=== PATIENT | male | born 1955 | race Caucasian/White ===

== ENCOUNTER 2016-03-29 15:53 | Emergency (ER) | payer OTHER ==
[~2016-03-29] VITALS: Ht 170.2 cm; Wt 81.6 kg
[~2016-03-29 15:53] MED LIST: AZIT250T5 PO; D-ME118S33 PO; HYDR-3812 PO; IBUP-15 PO; MINO100C2 PO; SULF1TAB35 PO
[2016-03-29] MEDS ORDERED: KETOROLAC 60 MG/2 ML VIAL IM STA (16:53)
--- NOTE | 2016-03-29 17:00 | ED Trauma-Multisystem ---
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 States he heard it falling an tried to get out of the way and it hit him. No LOC or other injury. Occurred at about 6 am this morning. See at clinic for this and sent here for evaluation. CO neck stiffness when turning. Occurred: This Morning Severity: Moderate Pain/Injury Location: Neck Method of Injury: Direct Blow Loss of Consciousness: No Loss of Consciousness Associated Symptoms (Fall): No Abdominal Pain, No Chest Pain, No Confusion, HeadacheNo Lightheadedness, Muscle SpasmsNo Nausea/Vomiting, Neck PainNo Shortness of Air Allergies and Home Medications Allergies Coded Allergies: No Known Drug Allergies (Unverified , 02/07/16) Home Medications Azithromycin 250 Mg Tablet #6 250 MG PO UD TAKE 2 TABLETS ON DAY ONE THEN TAKE 1 TABLET DAILY FOR FOUR MORE DAYS Prescribed by: BIJU QUEVEDO on 03/18/16 1206 Cyclobenzaprine HCl 10 Mg Tablet #15 10 MG PO Q8H PRN PRN SPASMS Prescribed by: LEV VALENTE on 03/29/16 1841 D-Methorphan Hb/P-Epd HCl/Bpm 118 Ml Syrup #120 5 ML PO Q4H PRN PRN CONGESTION Prescribed by: BIJU QUEVEDO on 03/18/16 1206 Constitutional: see HPINo chills, No fever Eyes: No Symptoms Reported Ears: No Symptoms Reported Nose: No Symptoms Reported Mouth: No Symptoms Reported Throat: No Symptoms to Report Respiratory: no symptoms reported Cardiovascular: No Symptoms Reported Gastrointestinal: no symptoms reported Musculoskeletal: see HPI muscle pain neck pain Psychiatric/Neurological: See HPI HeadacheDenies Weakness Past Fkydnjh-Zlfjhq-Ivpywl Hx Patient Social History Alcohol Use: Denies Use Recreational Drug Use: No Smoking Status: Never a Smoker Recent Foreign Travel: No Contact w/Someone Who Travel: No Recent Hopitalizations: No Immunizations Up To Date Tetanus Booster (TDap): Less than 5yrs Seasonal Allergies Seasonal Allergies: No Surgeries HX Surgeries: Yes (HERNIA) Surgeries: Appendectomy Respiratory Hx Respiratory Disorders: No Cardiovascular Hx Cardiac Disorders: No Neurological Hx Neurological Disorders: Yes Neurological Disorders: Seizure Disorder Reproductive System Hx Reproductive Disorders: No Sexually Transmitted Disease: No Genitourinary Hx Genitourinary Disorders: No Gastrointestinal Hx Gastrointestinal Disorders: No Musculoskeletal Hx Musculoskeletal Disorders: No Endocrine Hx Endocrine Disorders: No HEENT HX ENT Disorders: No Cancer Hx Cancer: No Psychosocial Hx Psychiatric Problems: No Integumentary HX Skin/Integumentary Disorder: No Blood Transfusions Hx Blood Disorders: No Reviewed Nursing Assessment Reviewed/Agree w Nursing PMH: Yes Family Medical History Significant Family History: No Pertinent Family Hx Physical Exam General Appearance: No Apparent Distress WD/WN Head: No Evidence of InjuryNo Lopes's Sign Ears, Nose, Throat: Hearing Grossly Normal No Evidence of ENT Injury No Dental Injury Neck: Limited Range of Motion (pain) Tender Lateral (bilateral)No Tender Midline Cardiovascular: Regular Rate, Rhythm No Murmur Respiratory: Lungs Clear Normal Breath Sounds Gastrointestinal: Non Tender Soft Back: Normal Inspection No CVA Tenderness No Vertebral Tenderness Extremity: Normal Range of Motion Non Tender Neurologic/Psychiatric: Alert Oriented x3 Skin: Normal Color Warm/Dry Benji Coma Score Best Eye Response ([place]): (4) Open Spontaneously Best Verbal Response (Benji): (5) Oriented Best Motor Response (Benji): (6) Obeys Commands Progress/Results/Core Measures Results/Orders My Orders Orders-LEV VALENTE MD Ct Head/Cervical Spine Wo (03/29/16 16:53) Ketorolac Injection (Toradol Injection) (03/29/16 16:53) Progress Note : Progress Note Seen and evaluated. CT HEad and neck ordered. Toradol 60 mg IM. Improved pain. CT shows only degeneration. DC home with return precautions. Verbalized understanding of instructions and agreement with plan. Diagnostic Imaging Diagonstic Imaging: CT Plain Films/CT/US/NM/MRI: c-spine, head Comments VIA [place], [place] NAME: LOC GALVEZ JR [facility] REC#: [id number] PT STATUS: REG ER : 1955 PHYSICIAN: LEV VALENTE MD ADMIT DATE: 03/29/16/ER Draft Date of Exam:03/29/16 CT HEAD/CERVICAL SPINE WO PROCEDURE: CT head and CT cervical spine without contrast. TECHNIQUE: Multiple contiguous axial images were obtained through the brain and cervical spine without the use of intravenous contrast. Sagittal and coronal reformations through the cervical spine were then performed. INDICATION: Status post fall, hitting back of neck with tree limb. Pain in between the shoulder blades. CORRELATION STUDY: None FINDINGS: CT HEAD: Ventricles and sulci appearing unremarkable. No midline shift or mass effect. No abnormal areas of decreased attenuation to suggest edema. No intracranial hemorrhage. Bony calvarium intact. Paranasal sinuses and mastoid air cells overall clear. CT CERVICAL SPINE: Reformatted images demonstrate relatively normal alignment. Cervical vertebral body heights overall maintained. The exception is a C6 level with slight loss of overall volume appearing to be chronic. There is moderate to marked disc space narrowing at C5-C6 and C6-C7 levels with prominent endplate osteophyte which does result in osseous narrowing of the neuroforamina, particularly at C6-C7 level. Slight asymmetric areas of hypertrophic facet arthropathy. No evidence for acute fracture. Odontoid intact. The lateral masses of C1 and C2 aligned. Occipital condyles unremarkable. Visualized lung apices appearing unremarkable. IMPRESSION: CT HEAD: 1. Negative for acute traumatic intracranial abnormality. CT CERVICAL SPINE: 1. Negative for acute fracture or traumatic subluxation. 2. Asymmetric cervical spondylosis with disc space narrowing and endplate osteophyte formation at C5-C6 and C6-C7 levels with mild to moderate osseous encroachment upon the foramina with resultant foraminal narrowing, particularly at C6-C7 level. Dictated on workstation # [id number] Dict: 03/29/16 1801 Trans: 03/29/16 1819 [facility] [id number] Interpreted by: PRESTON SAGE DO Electronically signed by: Reviewed: Reviewed by Me Departure Impression Impression: Primary Impression: Neck injury Qualified Code: S19.9XXA - Unspecified injury of neck, initial encounter Additional Impression: Neck muscle strain Qualified Code: S16.1XXA - Strain of muscle, fascia and tendon at neck level, initial encounter Disposition: 01 HOME, SELF-CARE Condition: Improved Departure-Patient Inst. Decision time for Depature: 18:38 Referrals: NO,LOCAL PHYSICIAN (PCP/Family) Primary Care Physician Patient Instructions: Cervical Muscle Strain (DC) Add. Discharge Instructions: All discharge instructions reviewed with patient and/or family. Voiced understanding. Take ibuprofen 800 mg every 8 hours for pain. You may take other meds as prescribed. Follow up with your doctor in a few days for recheck and further evaluation if not improved. Return for worse pain, fever, weakness or other concerns as needed. Scripts Cyclobenzaprine HCl 10 Mg [id number] Mg PO Q8H PRN SPASMS #15 TAB Prov:LEV VALENTE MD 03/29/16 LEV VALENTE MD Mar 29, 2016 17:00
--- NOTE | 2016-03-29 18:19 | Diagnostic Imaging Report ---
PROCEDURE: CT head and CT cervical spine without contrast. TECHNIQUE: Multiple contiguous axial images were obtained through the brain and cervical spine without the use of intravenous contrast. Sagittal and coronal reformations through the cervical spine were then performed. INDICATION: Status post fall, hitting back of neck with tree limb. Pain in between the shoulder blades. CORRELATION STUDY: None FINDINGS: CT HEAD: Ventricles and sulci appearing unremarkable. No midline shift or mass effect. No abnormal areas of decreased attenuation to suggest edema. No intracranial hemorrhage. Bony calvarium intact. Paranasal sinuses and mastoid air cells overall clear. CT CERVICAL SPINE: Reformatted images demonstrate relatively normal alignment. Cervical vertebral body heights overall maintained. The exception is a C6 level with slight loss of overall volume appearing to be chronic. There is moderate to marked disc space narrowing at C5-C6 and C6-C7 levels with prominent endplate osteophyte which does result in osseous narrowing of the neuroforamina, particularly at C6-C7 level. Slight asymmetric areas of hypertrophic facet arthropathy. No evidence for acute fracture. Odontoid intact. The lateral masses of C1 and C2 aligned. Occipital condyles unremarkable. Visualized lung apices appearing unremarkable. IMPRESSION: CT HEAD: 1. Negative for acute traumatic intracranial abnormality. CT CERVICAL SPINE: 1. Negative for acute fracture or traumatic subluxation. 2. Asymmetric cervical spondylosis with disc space narrowing and endplate osteophyte formation at C5-C6 and C6-C7 levels with mild to moderate osseous encroachment upon the foramina with resultant foraminal narrowing, particularly at C6-C7 level. Dictated by: Dictated on workstation # [id number]
[2016-03-29] MEDS ORDERED: CYCL10TA9 PO (18:41)
[2016-03-29 18:45] VITALS: BP 150/96
== END 2016-03-29 18:57 | disposition home or self-care (01) ==
LOC: EDUNIT# 15:53 → ER 15:55
DX: S16.1XXA Strain of muscle, fascia and tendon at neck level, initial encounter (principal); M47.812 Spondylosis without myelopathy or radiculopathy, cervical region; W22.8XXA Striking against or struck by other objects, initial encounter; Y92.414 Local residential or business street as the place of occurrence of the external cause; Y99.0 Civilian activity done for income or pay
CPT/HCPCS: 70450; 72125; 96372

== ENCOUNTER 2016-09-25 18:36 | Emergency (ER) | payer SELFPAY ==
[~2016-09-25] VITALS: Ht 170.2 cm; Wt 77.6 kg
[~2016-09-25 18:36] MED LIST changes: +CYCL10TA9 PO
[2016-09-25] MEDS ORDERED: AZIT250T5 PO ×2 (18:46→19:14)
[2016-09-25] MEDS ORDERED: BENZ-13 PO ×2 (18:46→19:14)
--- NOTE | 2016-09-25 18:46 | ED Cough/URI ---
General Chief Complaint: Respiratory Problems Stated Complaint: POSSIBLE PNEUMONIA Source: patient Exam Limitations: no limitations History of Present Illness Time seen by provider: 18:43 Initial Comments To ER with reports of possible pneumonia. He is concerned about this because he had a productive cough for 2 weeks. He reports chills but no fevers. He does not smoke. He denies any rhinorrhea or sore throat. Denies shortness of breath. Timing/Duration: constant Severity/Quality: productive cough Associated Symptoms: cough Allergies and Home Medications Allergies Coded Allergies: No Known Drug Allergies (Unverified , 09/25/16) Constitutional: see HPI EENTM: see HPI Respiratory: see HPI, cough Cardiovascular: no symptoms reported Genitourinary: no symptoms reported Musculoskeletal: no symptoms reported Skin: no symptoms reported Psychiatric/Neurological: No Symptoms Reported Past Csobkpb-Rvhple-Hhspzn Hx Patient Social History Recent Foreign Travel: No Contact w/Someone Who Travel: No Recent Hopitalizations: No Immunizations Up To Date Tetanus Booster (TDap): Less than 5yrs Seasonal Allergies Seasonal Allergies: No Surgeries HX Surgeries: Yes (HERNIA) Surgeries: Appendectomy Respiratory Hx Respiratory Disorders: No Cardiovascular Hx Cardiac Disorders: No Neurological Hx Neurological Disorders: Yes Neurological Disorders: Seizure Disorder Reproductive System Hx Reproductive Disorders: No Sexually Transmitted Disease: No Genitourinary Hx Genitourinary Disorders: No Gastrointestinal Hx Gastrointestinal Disorders: No Musculoskeletal Hx Musculoskeletal Disorders: No Endocrine Hx Endocrine Disorders: No HEENT HX ENT Disorders: No Cancer Hx Cancer: No Psychosocial Hx Psychiatric Problems: No Integumentary HX Skin/Integumentary Disorder: No Blood Transfusions Hx Blood Disorders: No Family Medical History Significant Family History: No Pertinent Family Hx Physical Exam Vital Signs Vital Sign - Last 12Hours 09/25/16 18:42 Temp 97.8 Pulse 91 Resp 18 B/P (MAP) 168/104 Capillary Refill : General Appearance: WD/WN, no apparent distress Eyes: Bilateral Eye EOMI, Bilateral Eye Normal Inspection, Bilateral Eye PERRL HEENT: PERRL/EOMI, normal ENT inspection Neck: non-tender, full range of motion Respiratory: lungs clear, normal breath sounds, no respiratory distress, no accessory muscle use Cardiovascular: regular rate, rhythm, no murmur Gastrointestinal: normal bowel sounds, non tender, soft Extremities: normal range of motion, non-tender Neurologic/Psychiatric: alert, normal mood/affect, oriented x 3 Skin: normal color, warm/dry Progress/Results/Core Measures Results/Orders My Orders Orders - BIJU QUEVEDO APRN Chest Pa/Lat (2 View) (09/25/16 18:42) Vital Signs/I&O Vital Sign - Last 12Hours 09/25/16 18:42 Temp 97.8 Pulse 91 Resp 18 B/P (MAP) 168/104 Departure Impression Impression: Primary Impression: Bronchitis Disposition: 01 HOME, SELF-CARE Condition: Stable Departure-Patient Inst. Decision time for Depature: 18:44 Referrals: NO,LOCAL PHYSICIAN (PCP/Family) Primary Care Physician Patient Instructions: Acute Bronchitis, Adult (DC) Add. Discharge Instructions: Medication as directed Follow-up with your doctor next week All discharge instructions reviewed with patient and/or family. Voiced understanding. Scripts Benzonatate (Tessalon Perle) 100 Mg Capsule 100 MG PO TID Y for COUGH, #14 CAP Prov: BIJU QUEVEDO APRN 09/25/16 Azithromycin (Azithromycin) 250 Mg Tablet 250 MG PO UD, #6 TAB TAKE 2 TABLETS ON DAY ONE THEN TAKE 1 TABLET DAILY FOR FOUR MORE DAYS Prov: BIJU QUEVEDO APRN 09/25/16 BIJU QUEVEDO APRN Sep 25, 2016 18:46
--- NOTE | 2016-09-25 19:10 | Diagnostic Imaging Report ---
INDICATION: Cough, question pneumonia EXAMINATION: Two-chest 09/25/2016 Comparison is made to 03/19/2016 FINDINGS: Two views of the chest There are no infiltrates or effusions. There is no pneumothorax. Heart and pulmonary vasculature appear unremarkable. IMPRESSION: 1. No acute process. Dictated by: Dictated on workstation # [id number]
[2016-09-25 19:26] VITALS: BP 152/91
== END 2016-09-25 19:26 | disposition home or self-care (01) ==
LOC: EDUNIT# 18:36 → ER 18:38
DX: J40 Bronchitis, not specified as acute or chronic (principal); G40.909 Epilepsy, unspecified, not intractable, without status epilepticus; Z90.49 Acquired absence of other specified parts of digestive tract
CPT/HCPCS: 71020; 99282

== ENCOUNTER 2017-04-07 22:25 | Emergency (ER) | payer SELFPAY ==
[~2017-04-07] VITALS: Ht 170.2 cm; Wt 77.6 kg
[~2017-04-07 22:25] MED LIST changes: +ACHD5005 PO; +AZIT250T12 PO; -AZIT250T5 PO; +BENZ-13 PO; -HYDR-3812 PO; -IBUP-15 PO; +IBUP-16 PO
[2017-04-07] MEDS ORDERED: KETOROLAC 60 MG/2 ML VIAL IM STA (22:38)
[2017-04-07] MEDS ORDERED: CYCLOBENZAPRINE 10 MG (FLEXERIL) TAB PO STA (22:38)
[2017-04-07] MEDS ORDERED: DEXAMETHASONE PF 10 MG/ML (DECADRON) VIAL IM STA (22:38)
--- NOTE | 2017-04-07 22:47 | ED Back Pain ---
General Chief Complaint: Back Problems Stated Complaint: LOW BACK PAIN History of Present Illness Time Seen by Provider: 20:30 Initial Comments 61 -year-old male reports 1 month history of low back and right leg pain. He denies any injury to his back. He has not been taking anything for the pain until today, he tried a hydrocodone with no relief in his symptoms. Denies any bowel or bladder changes. Location: Lumbar Spine Timing/Duration: Getting Worse Severity: Moderate Radiation: Upper Legs (right) Method of Injury: Unknown Modifying Factors: Improves With Rest Associated Symptoms: muscle spasms, numbness in legs/feet, tingling in legs/ feet, lower back pain, No loss of bladder control, No loss of bowel control Allergies and Home Medications Allergies Coded Allergies: No Known Drug Allergies (Unverified , 09/25/16) Home Medications Cyclobenzaprine HCl 10 Mg Tablet, 10 MG PO Q8H, #12 Ref 0 Prescribed by: JOSÉ DE on 04/07/170 Tramadol HCl 50 Mg Tablet, 50 MG PO Q8H, #20 Ref 0 Prescribed by: JOSÉ DE on 04/07/17 2250 Constitutional: no symptoms reported, see HPI Musculoskeletal: see HPI, back pain All Other Systems Reviewed Negative Unless Noted: Yes Past Rdmfgrx-Fnluew-Rvdvvw Hx Patient Social History Alcohol Use: Denies Use Recreational Drug Use: No Smoking Status: Never a Smoker 2nd Hand Smoke Exposure: No Recent Foreign Travel: No Contact w/Someone Who Travel: No Recent Hopitalizations: No Immunizations Up To Date Tetanus Booster (TDap): Less than 5yrs Seasonal Allergies Seasonal Allergies: No Surgeries History of Surgeries: Yes (HERNIA) Surgeries: Appendectomy Respiratory History of Respiratory Disorde: No Cardiovascular History of Cardiac Disorders: No Neurological History of Neurological Disord: Yes Neurological Disorders: Seizure Disorder Reproductive System Hx Reproductive Disorders: No Sexually Transmitted Disease: No Genitourinary History of Genitourinary Disor: No Gastrointestinal History of Gastrointestinal Di: No Musculoskeletal History of Musculoskeletal Dis: No Endocrine History of Endocrine Disorders: No HEENT History of HEENT Disorders: No Cancer History of Cancer: No Psychosocial History of Psychiatric Problem: No Integumentary History of Skin or Integumenta: No Blood Transfusions History of Blood Disorders: No Reviewed Nursing Assessment Reviewed/Agree w Nursing PMH: Yes Family Medical History Significant Family History: No Pertinent Family Hx Physical Exam Vital Signs Vital Sign - Last 12Hours 04/07/17 22:35 Temp 97.8 Pulse 88 Resp 18 B/P (MAP) 149/108 (122) Pulse Ox 97 O2 Delivery Room Air Capillary Refill : General Appearance: No Apparent Distress, WD/WN Neck: Full Range of Motion, Normal Inspection, Non Tender, Supple Cardiovascular: Regular Rate, Rhythm, No Murmur, Normal Peripheral Pulses Respiratory: Chest Non Tender, Lungs Clear, Normal Breath Sounds Gastrointestinal: Normal Bowel Sounds, Non Tender, Soft Back: Normal Inspection, Decreased Range of Motion (secondary to pain), Muscle Spasm (lumbar spine), Other (ambulates with an antalgic gait, able to toe and heal walk. Power V/V L4-S1, but pain in low back with right hip flexor testing. + SLR. ) Neurologic/Psychiatric: Alert, Oriented x3, No Motor/Sensory Deficits, Normal Mood/Affect Skin: Normal Color, Warm/Dry Progress/Results/Core Measures Results/Orders My Orders Orders - JOSÉ DE Cyclobenzaprine Tablet (Flexeril Tablet) (04/07/17 22:38) Ketorolac Injection (Toradol Injection) (04/07/17 22:38) Dexamethasone Pf Injection (Decadron Pf (04/07/17 22:38) Lumbar Spine - 2-3 Views (04/07/17 22:38) Dexamethasone Injection (Decadron Inject (04/07/17 22:48) Medications Given in ED Current Medications Medications Dose Ordered Sig/Dae Route Start Time Stop Time Status Last Admin Dose Admin Dexamethasone Sodium Phosphate 10 mg STK-MED ONCE .ROUTE 04/07/17 22:48 04/07/17 22:51 DC 04/07/17 22:52 10 MG Vital Signs/I&O Vital Sign - Last 12Hours 04/07/17 04/07/17 04/07/17 04/07/17 22:35 22:52 22:52 23:10 Temp 97.8 97.8 97.8 97.8 Pulse 88 70 Resp 18 18 B/P (MAP) 149/108 (122) Pulse Ox 97 98 O2 Delivery Room Air Progress Note : Time: 20:30 Progress Note Initial evaluation completed, recommended Decadron 10 mg IM, Toradol 60 mg IM, Flexeril 10 mg by mouth. X-rays of lumbosacral spine. Continue to monitor patient. 2300 x-ray show no acute changes, mild degenerative changes noted at L5-S1. Will be over read by radiology. Patient reports slight improvement. Discharge instructions and return precautions reviewed with patient, all questions answered. Diagnostic Imaging Diagonstic Imaging: Xray Plain Films/CT/US/NM/MRI: chest Comments No acute bony abnormalities noted, degenerative changes at L5-S1. Reviewed: Reviewed by Me Departure Impression Impression: Primary Impression: Lumbar radiculopathy Additional Impressions: Back pain Qualified Codes: M54.41 - Lumbago with sciatica, right side Back strain Qualified Codes: S39.012A - Strain of muscle, fascia and tendon of lower back , initial encounter Essential hypertension Disposition: HOME, SELF-CARE Condition: Improved Departure-Patient Inst. Decision time for Depature: 23:00 Referrals: NO,LOCAL PHYSICIAN (PCP/Family) Primary Care Physician Patient Instructions: High Blood Pressure (DC), Low Back Pain (DC), Lumbar Muscle Strain (DC), Radiculopathy (DC) Add. Discharge Instructions: Alternate heat and ice on low back for 20 minutes every 2 hours. Alternate ibuprofen 600 mg and Tylenol 150 mg every 4 hours for pain. Ambulates 10 minutes every hour while awake for back pain. Use cane for ambulation. Establish care with primary care provider. Have blood pressure checked. Return to emergency department for changes in bowel or bladder habits, new injuries or concerns. All discharge instructions reviewed with patient and/or family. Voiced understanding. Scripts Cyclobenzaprine HCl (Cyclobenzaprine HCl) 10 Mg Tablet 10 MG PO Q8H, #12 TAB 0 Refills Prov: JOSÉ DE 04/07/17 Tramadol HCl (Tramadol HCl) 50 Mg Tablet 50 MG PO Q8H, #20 TAB 0 Refills Prov: JOSÉ DE 04/07/17 Work/School Note: [employer] JOSÉ DE Apr 07, 2017 22:47
[2017-04-07] MEDS ORDERED: DEXAMETHASONE 10 MG/ML (DECADRON) 1 ML VIAL ONE (22:48)
[2017-04-07] MEDS ORDERED: TRAM50TA2 PO (22:50)
[2017-04-07] MEDS ORDERED: CYCL10TA9 PO (22:50)
[2017-04-07 23:10] VITALS: BP 154/104
--- OUTSIDE RECORDS SUMMARY | 2017-04-07 23:22 | XMS REPORT ---
Author Author VIVI PORRAS Organization 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 Name Role Phone VIVI PORRAS Unavailable PROBLEMS Unknown Problems ALLERGIES Substance Reaction Event Type Date Status Morphine Sulfate Unknown Drug Allergy Mar, Active SOCIAL HISTORY No smoking Hx information available PLAN OF CARE Activity Details Follow Up 2 Weeks- needs to est care Reason: VITAL SIGNS Weight 170.2 lbs 2016-03-29 Temperature 97.3 degrees Fahrenheit 2016-03-29 Heart Rate 76 bpm 2016-03-29 Respiratory Rate 20 2016-03-29 Blood pressure systolic 122 mmHg 2016-03-29 Blood pressure diastolic 84 mmHg 2016-03-29 MEDICATIONS No Known Medications RESULTS Name Result Date Reference Range Xray : Spine, Cervical (IN HOUSE) 2016-03-29 PROCEDURES Procedure Date Ordered Related Diagnosis Body Site X-RAY EXAM OF NECK SPINE Mar 29, 2016 Office Visit, New Pt., Level 3 Mar 29, 2016 IMMUNIZATIONS No Known Immunizations
--- OUTSIDE RECORDS SUMMARY | 2017-04-07 23:23 | XMS REPORT | Continuity of Care Document ---
Author Author [facility] Organization [facility] Address Unknown Phone Unavailable Allergies Active Description Code Type Severity Reaction Onset Reported/Identified Relationship to Patient Clinical Status Yes No Known Drug Allergies [id number] Drug Allergy Unknown N/A 09/25/2016 Medications There is no data. Problems Date Dx Coded Attending Type Code Diagnosis Diagnosed By 02/06/2016 LAURENCE SILVA MD (DDU) Ot 780.39 OTHER CONVULSIONS 02/06/2016 LAURENCE SILVA MD (DDU) Ot 780.4 DIZZINESS AND GIDDINESS 02/06/2016 LAURENCE ISLVA MD (DDU) Ot V68.01 DISABILITY EXAMINATION 02/06/2016 LAURENCE SILVA MD (DDU) Ot V72.5 RADIOLOGICAL EXAM NEC 02/06/2016 YOLANDA WIN MD Ot S80.261A INSECT BITE (NONVENOMOUS), RIGHT KNEE, I 02/06/2016 YOLANDA WIN MD Ot Z53.21 PROC/TRTMT NOT CRD OUT D/T PT LV BEF SEE 02/07/2016 FAISAL KUMAR Ot L03.116 CELLULITIS OF LEFT LOWER LIMB 02/07/2016 FAISAL KUMAR Ot T63.391A TOXIC EFFECT OF VENOM OF SPIDER, ACCIDEN 02/09/2016 YOLANDA WIN MD Ot S80.261A INSECT BITE (NONVENOMOUS), RIGHT KNEE, I 02/09/2016 YOLANDA WIN MD Ot Z53.21 PROC/TRTMT NOT CRD OUT D/T PT LV BEF SEE 02/09/2016 FAISAL KUMAR Ot L03.116 CELLULITIS OF LEFT LOWER LIMB 02/09/2016 FAISAL KUMAR Ot T63.391A TOXIC EFFECT OF VENOM OF SPIDER, ACCIDEN 03/18/2016 BIJU QUEVEDO MACHINERY REPAIR MAINTENANCE SUPERVISOR Ot J40 BRONCHITIS, NOT SPECIFIED ACUTE OR CH 03/18/2016 BIJU QUEVEDO APRN Ot R05 COUGH 03/19/2016 BIJU QUEVEDO APRN Ot J40 BRONCHITIS, NOT SPECIFIED ACUTE OR CH 03/19/2016 BIJU QUEVEDO APRN Ot R05 COUGH 03/29/2016 LEV VALENTE MD, Ot M47.812 SPONDYLOSIS W/O MYELOPATHY OR RADICULOPA 03/29/2016 LEV VALENTE MD Ot S16.1XXA STRAIN OF MUSCLE, FASCIA AND TENDON AT N 03/29/2016 LEV VALENTE MD Ot S19.9XXA UNSPECIFIED INJURY OF NECK, INITIAL ENCO 03/29/2016 LEV VALENTE MD, Ot W22.8XXA STRIKING AGAINST OR STRUCK BY OTHER OBJE 03/29/2016 LEV VALENTE MD Ot Y92.414 LOCAL RESIDENTIAL OR BUSINESS STREET 03/29/2016 LEV VALENTE MD Ot Y99.0 CIVILIAN ACTIVITY DONE FOR INCOME OR PAY 03/31/2016 LEV VALENTE MD, Ot M47.812 SPONDYLOSIS W/O MYELOPATHY OR RADICULOPA 03/31/2016 LEV VALENTE MD Ot S16.1XXA STRAIN OF MUSCLE, FASCIA AND TENDON AT N 03/31/2016 LEV VALENTE MD Ot S19.9XXA UNSPECIFIED INJURY OF NECK, INITIAL ENCO 03/31/2016 LEV VALENTE MD Ot W22.8XXA STRIKING AGAINST OR STRUCK BY OTHER OBJE 03/31/2016 LEV VALENTE MD Ot Y92.414 LOCAL RESIDENTIAL OR BUSINESS STREET 03/31/2016 LEV VALENTE MD Ot Y99.0 CIVILIAN ACTIVITY DONE FOR INCOME OR PAY 09/27/2016 BIJU QUEVEDO APRN Ot G40.909 EPILEPSY, UNSP, NOT INTRACTABLE, WITHOUT 09/27/2016 BIJU QUEVEDO APRN Ot J40 BRONCHITIS, NOT SPECIFIED ACUTE OR CH 09/27/2016 BIJU QUEVEDO APRN Ot R05 COUGH 09/27/2016 BIJU QUEVEDO APRN Ot Z90.49 ACQUIRED ABSENCE OF OTHER SPECIFIED PART Procedures There is no data. Results Test Result Range Complete blood count (CBC) with automated white blood cell (WBC) differential - 02/07/16 12:25 Blood leukocytes automated count (number/volume) 8.7 10*3/uL 4.3-11.0 Blood erythrocytes automated count (number/volume) 4.99 10*6/uL 4.35-5.85 Venous blood hemoglobin measurement (mass/volume) 15.4 g/dL 13.3-17.7 Blood hematocrit (volume fraction) 44 % 40-54 Automated erythrocyte mean corpuscular volume 88 [foz_us] 80-99 Automated erythrocyte mean corpuscular hemoglobin (mass per erythrocyte) 31 pg 25-34 Automated erythrocyte mean corpuscular hemoglobin concentration measurement ( mass/volume) 35 g/dL 32-36 Automated erythrocyte distribution width ratio 13.9 % 10.0-14.5 Automated blood platelet count (count/volume) 163 10*3/uL 130-400 Automated blood platelet mean volume measurement 11.5 [foz_us] 7.4-10.4 Automated blood neutrophils/100 leukocytes 60 % 42-75 Automated blood lymphocytes/100 leukocytes 23 % 12-44 Blood monocytes/100 leukocytes 15 % 0-12 Automated blood eosinophils/100 leukocytes 1 % 0-10 Automated blood basophils/100 leukocytes 1 % 0-10 Blood neutrophils automated count (number/volume) 5.2 10*3 1.8-7.8 Blood lymphocytes automated count (number/volume) 2.0 10*3 1.0-4.0 Blood monocytes automated count (number/volume) 1.3 10*3 0.0-1.0 Automated eosinophil count 0.1 10*3/uL 0.0-0.3 Automated blood basophil count (count/volume) 0.0 10*3/uL 0.0-0.1 Comprehensive metabolic panel - 02/07/16 12:25 Serum or plasma sodium measurement (moles/volume) 139 mmol/L 135-145 Serum or plasma potassium measurement (moles/volume) 4.4 mmol/L 3.6-5.0 Serum or plasma chloride measurement (moles/volume) 108 mmol/L 98-107 Carbon dioxide 20 mmol/L 21-32 Serum or plasma anion gap determination (moles/volume) 11 mmol/L 5-14 Serum or plasma urea nitrogen measurement (mass/volume) 18 mg/dL 7-18 Serum or plasma creatinine measurement (mass/volume) 1.19 mg/dL 0.60-1.30 Serum or plasma urea nitrogen/creatinine mass ratio 15 NRG Serum or plasma creatinine measurement with calculation of estimated glomerular filtration rate > NRG Serum or plasma glucose measurement (mass/volume) 91 mg/dL 70-105 Serum or plasma calcium measurement (mass/volume) 9.3 mg/dL 8.5-10.1 Serum or plasma total bilirubin measurement (mass/volume) 0.5 mg/dL 0.1-1.0 Serum or plasma alkaline phosphatase measurement (enzymatic activity/volume) 50 U/L 40-136 Serum or plasma aspartate aminotransferase measurement (enzymatic activity/ volume) 23 U/L 5-34 Serum or plasma alanine aminotransferase measurement (enzymatic activity/volume ) 22 U/L 0-55 Serum or plasma protein measurement (mass/volume) 6.8 g/dL 6.4-8.2 Serum or plasma albumin measurement (mass/volume) 4.2 g/dL 3.2-4.5 Serum or plasma C reactive protein measurement (mass/volume) - 02/07/16 12:25 Serum or plasma C reactive protein measurement (mass/volume) 2.57 mg /dL 0.00-0.50 Influenza virus A and B antigen detection - 03/18/16 11:50 FLU RESULT NEGATIVE FOR INFLUENZA A AND B ANTIGENS BY IA NRG Encounters ACCT No. Visit Date/Time Discharge Status Pt. Type Provider Facility Loc./Unit Complaint [id number] 09/25/2016 18:38:00 09/25/2016 19:26:00 DIS Outpatient BIJU QUEVEDO APRN [facility] ER POSSIBLE PNEUMONIA [id number] 03/29/2016 15:55:00 03/29/2016 18:57:00 DIS Emergency LEV VALENTE MD [facility] ER NECK PAIN FROM INJURY [id number] 03/18/2016 11:54:00 03/18/2016 12:34:00 DIS Emergency BIJU QUEVEDO APRN [facility] ER COUGH,FEVER,PAIN [id number] 02/07/2016 10:44:00 02/07/2016 13:51:00 DIS Emergency FAISAL KUMAR [facility] ER L KNEE SPIDER BITE, SPREADING [id number] 02/06/2016 18:52:00 02/06/2016 20:17:00 DIS Emergency QUIRINO SHEIKH, YOLANDA Jacobs [facility] ER POSS SPIDER BITE ON L KNEE [id number] 10/18/2012 11:57:00 10/18/2012 23:59:59 CLS Outpatient RICARDO SHEIKH, LAURENCE Nicholson (DDU) [facility] RAD DDU
--- NOTE | 2017-04-08 07:48 | Diagnostic Imaging Report ---
INDICATION: Back pain. 3 views of lumbar spine were obtained. FINDINGS: The alignment of lumbar spine is normal. Vertebral body heights are well-maintained. There is no spondylolysis or spondylolisthesis. IMPRESSION: Mild lumbar spondylosis otherwise unremarkable. Dictated by: Dictated on workstation # [id number]
== END 2017-04-07 23:09 | disposition home or self-care (01) ==
LOC: EDUNIT# 22:25 → ER 22:28
DX: S39.012A Strain of muscle, fascia and tendon of lower back, initial encounter (principal); M54.16 Radiculopathy, lumbar region; I10 Essential (primary) hypertension; G40.909 Epilepsy, unspecified, not intractable, without status epilepticus; Z90.49 Acquired absence of other specified parts of digestive tract; Z87.19 Personal history of other diseases of the digestive system; X58.XXXA Exposure to other specified factors, initial encounter
CPT/HCPCS: 72100; 96372; 99284

== ENCOUNTER 2017-08-24 20:18 | Observation (INO) | payer SELFPAY ==
[~2017-08-24] VITALS: Ht 175.3 cm; Wt 80.7 kg
[~2017-08-24 20:18] MED LIST changes: +TRAM50TA2 PO
--- OUTSIDE RECORDS SUMMARY | 2017-08-24 20:23 | XMS REPORT | Continuity of Care Document ---
Author Author [facility] Organization [facility] Address Unknown Phone Unavailable Allergies Active Description Code Type Severity Reaction Onset Reported/Identified Relationship to Patient Clinical Status Yes No Known Drug Allergies [id number] Drug Allergy Unknown N/A 09/25/2016 Medications There is no data. Problems Date Dx Coded Attending Type Code Diagnosis Diagnosed By 02/06/2016 LAURENCE SILVA MD (DDU) Ot 780.39 OTHER CONVULSIONS 02/06/2016 LAURENCE SILVA MD (DDU) Ot 780.4 DIZZINESS AND GIDDINESS 02/06/2016 LAURENCE SILVA MD (DDU) Ot V68.01 DISABILITY EXAMINATION 02/06/2016 [...] VENOM OF SPIDER, ACCIDEN 03/18/2016 BIJU QUEVEDO DEBURRING AND TOOLING MACHINE OPERATOR Ot J40 BRONCHITIS, NOT SPECIFIED ACUTE OR [...] OF NECK, INITIAL ENCO 03/29/2016 LEV VALENTE MD Ot W22.8XXA STRIKING AGAINST OR STRUCK BY OTHER OBJE 03/29/2016 LEV VALENTE MD Ot Y92.414 LOCAL RESIDENTIAL OR BUSINESS STREET 03/29/2016 LEV VALENTE MD Ot Y99.0 CIVILIAN ACTIVITY DONE FOR INCOME OR PAY 03/31/2016 LEV VALENTE MD Ot M47.812 SPONDYLOSIS W/O MYELOPATHY OR RADICULOPA [...] CIVILIAN ACTIVITY DONE FOR INCOME OR PAY 09/25/2016 BIJU QUEVEDO APRN Ot G40.909 EPILEPSY, UNSP, NOT INTRACTABLE, WITHOUT 09/25/2016 BIJU QUEVEDO APRN Ot J40 BRONCHITIS, NOT SPECIFIED ACUTE OR CH 09/25/2016 BIJU QUEVEDO APRN Ot R05 COUGH 09/25/2016 BIJU QUEVEDO APRN Ot Z90.49 ACQUIRED ABSENCE OF OTHER SPECIFIED PART 09/27/2016 BIJU QUEVEDO APRN Ot G40.909 EPILEPSY, UNSP, NOT INTRACTABLE, WITHOUT 09/27/2016 BIJU QUEVEDO DEBURRING AND TOOLING MACHINE OPERATOR Ot J40 BRONCHITIS, NOT SPECIFIED ACUTE OR CH 09/27/2016 BIJU QUEVEDO APRN Ot R05 COUGH 09/27/2016 BIJU QUEVEDO DEBURRING AND TOOLING MACHINE OPERATOR Ot Z90.49 ACQUIRED ABSENCE OF OTHER SPECIFIED PART 04/07/2017 KENISHA, JOSÉ MANAGER OF PHARMACY Ot G40.909 EPILEPSY, UNSP, NOT INTRACTABLE, WITHOUT 04/07/2017 KENISHA, JOSÉ MANAGER OF PHARMACY Ot I10 ESSENTIAL (PRIMARY) HYPERTENSION 04/07/2017 KENISHA, JOSÉ MANAGER OF PHARMACY Ot M54.16 RADICULOPATHY, LUMBAR REGION 04/07/2017 KENISHA, JOSÉ MANAGER OF PHARMACY Ot M54.5 LOW BACK PAIN 04/07/2017 KENISHA, JOSÉ MANAGER OF PHARMACY Ot S39.012A STRAIN OF MUSCLE, FASCIA AND TENDON OF L 04/07/2017 KENISHA, JOSÉ MANAGER OF PHARMACY Ot X58.XXXA EXPOSURE TO OTHER SPECIFIED FACTORS, INI 04/07/2017 KENISHA, JOSÉ MANAGER OF PHARMACY Ot Z87.19 PERSONAL HISTORY OF OTHER DISEASES OF TH 04/07/2017 KENISHA, JOSÉ MANAGER OF PHARMACY Ot Z90.49 ACQUIRED ABSENCE OF OTHER SPECIFIED PART 04/11/2017 KENISHA, JOSÉ MANAGER OF PHARMACY Ot G40.909 EPILEPSY, UNSP, NOT INTRACTABLE, WITHOUT 04/11/2017 KENISHA, JOSÉ MANAGER OF PHARMACY Ot I10 ESSENTIAL (PRIMARY) HYPERTENSION 04/11/2017 KENISHA, JOSÉ MANAGER OF PHARMACY Ot M54.16 RADICULOPATHY, LUMBAR REGION 04/11/2017 KENISHA, JOSÉ MANAGER OF PHARMACY Ot M54.5 LOW BACK PAIN 04/11/2017 KENISHA, JOSÉ MANAGER OF PHARMACY Ot S39.012A STRAIN OF MUSCLE, FASCIA AND TENDON OF L 04/11/2017 KENISHA, JOSÉ MANAGER OF PHARMACY Ot X58.XXXA EXPOSURE TO OTHER SPECIFIED FACTORS, INI 04/11/2017 KENISHA, JOSÉ MANAGER OF PHARMACY Ot Z87.19 PERSONAL HISTORY OF OTHER DISEASES OF 04/11/2017 KENISHA, JOSÉ MANAGER OF PHARMACY Ot Z90.49 ACQUIRED ABSENCE OF OTHER SPECIFIED [...] Status Pt. Type Provider Facility Loc./Unit Complaint [id number] 04/07/2017 22:28:00 04/07/2017 23:09:00 DIS Emergency JOSÉ DE [facility] ER LOW BACK PAIN [id number] 09/25/2016 18:38:00 09/25/2016 19:26:00 DIS Emergency BIJU QUEVEDO APRN [facility] ER POSSIBLE PNEUMONIA [id number] 03/29/2016 15:55:00 03/29/2016 18:57:00 DIS Emergency LEV VALENTE MD [facility] ER NECK PAIN FROM INJURY [id number] 03/18/2016 11:54:00 03/18/2016 12:34:00 DIS Emergency BIJU QUEVEDO APRN [facility] ER COUGH,FEVER,PAIN [id number] 02/07/2016 10:44:00 02/07/2016 13:51:00 DIS Emergency FAISAL KMUAR [facility] ER L KNEE SPIDER BITE, SPREADING [id number] 02/06/2016 18:52:00 02/06/2016 20:17:00 DIS Emergency QUIRINO SHEIKH, YOLANDA Jacobs [facility] ER POSS SPIDER BITE ON L KNEE [id number] 10/18/2012 11:57:00 10/18/2012 23:59:59 CLS Outpatient RICARDO SHEIKH, LAURENCE Nicholson (DDU) [facility] DDU
--- NOTE | 2017-08-24 20:35 | ED Chest Pain ---
General Chief Complaint: Chest Pain Stated Complaint: CP Source: patient, EMS Exam Limitations: no limitations History of Present Illness Date Seen by Provider: August 24, 2017 Time Seen by Provider: 20:23 Initial Comments PT ARRIVES VIA EMS FROM WORK AT [email or web address] C/O LEFT MID CHEST PAIN RADIATING DOWN LEFT ARM--BEGAN AROUND 1830 TONIGHT--HAD BEEN AT WORK SINCE 1600 AND [employer] WHEN WHEN HE GOT TO WORK STATES PAIN WAS "12"/10--STATES PAIN WAS SO BAD IT DOUBLED HIM OVER AND HE COULDN'T HARDLY STAND NOTHING WORSENS OR IMPROVES PAIN C/O SHORTNESS OF BREATH WAS ALREADY SWEATING FROM WORK + DIZZINESS NO NAUSEA/VOMITING NO SWELLING IN LEGS/ FEET OR PAIN IN CALVES NO PALPITATIONS NO HISTORY OF [facility] GAVE 324 MG ASPIRIN AND NTG X 2--COMPLETE RESOLUTION OF ALL SYMPTOMS PT DOES NOT GO TO DOCTORS, HAS NOT SEEN ONE IN YEARS Allergies and Home Medications Allergies Coded Allergies: No Known Drug Allergies (Unverified , 09/25/16) Home Medications No Active Prescriptions or Reported Meds Patient Home Medication List Home Medication List Reviewed: Yes Review of Systems Constitutional: see HPI, diaphoresis, dizziness EENTM: No Symptoms Reported Respiratory: See HPI, Shortness of Air Cardiovascular: See HPI, Chest Pain; Denies Edema, Denies Irregular Heart Rate ; Lightheadedness; Denies Palpitations, Denies Syncope Gastrointestinal: No Symptoms Reported; Denies Abdominal Pain, Denies Nausea, Denies Vomiting Genitourinary: No Symptoms Reported Musculoskeletal: see HPI; No back pain Skin: no symptoms reported Psychiatric/Neurological: No Symptoms Reported Endocrine: No Symptoms Reported Hematologic/Lymphatic: No Symptoms Reported Past Zkeowza-Przxrl-Ulolvg Hx Patient Social History Alcohol Use: Past History (MODERATE USE IN PAST, NONE FOR YEARS) Recreational Drug Use: No Smoking Status: Former Smoker (< 1 PPD, QUIT MANY YEARS AGO) 2nd Hand Smoke Exposure: No Recent Hopitalizations: No Immunizations Up To Date Tetanus Booster (TDap): Less than 5yrs Seasonal Allergies Seasonal Allergies: No Past Medical History Surgeries: Yes (RIGHT INGUINAL HERNIA REPAIR) Abdominal, Appendectomy Respiratory: No Cardiac: No Neurological: Yes (HAD SEIZURE, NO MEDICATIONS--STATES "DR COULDN'T FIND ANYTHING WRONG") Seizure Disorder Reproductive Disorders: No Sexually Transmitted Disease: No Genitourinary: No Gastrointestinal: Yes (S/P RIGHT INGUINAL HERNIA REPAIR) Abdominal Hernia, Gastroesophageal Reflux (SELF DX) Musculoskeletal: No Endocrine: No HEENT: No Cancer: No Psychosocial: No Integumentary: No Blood Disorders: No Family Medical History No Pertinent Family Hx Physical Exam Vital Signs Vital Signs - First Documented Capillary Refill : General Appearance: No Apparent Distress, WD/WN, Anxious (SLIGHTLY) Neck: Full Range of Motion, Normal Inspection, Non Tender, Supple; No Carotid Bruit, No JVD Respiratory: Chest Non Tender, Normal Breath Sounds, No Accessory Muscle Use, No Respiratory Distress Cardiovascular: Regular Rate, Rhythm, No Edema, No Gallop, No JVD, No Murmur, Normal Peripheral Pulses Gastrointestinal: Normal Bowel Sounds, No Organomegaly, No Pulsatile Mass, Non Tender, Soft Extremity: Normal Capillary Refill, Normal Inspection, Normal Range of Motion, Non Tender, No Calf Tenderness, No Pedal Edema Neurologic/Psychiatric: Alert, Oriented x3, No Motor/Sensory Deficits, Normal Mood/Affect, supplier development manager II-XII Norm as Tested Skin: Normal Color, Warm/Dry Progress/Results/Core Measures Results/Orders Lab Results Laboratory Tests Test 08/24/17 20:20 Range/Units White Blood Count 6.4 4.3-11.0 10^3/uL Red Blood Count 4.89 4.35-5.85 10^6/uL Hemoglobin 15.2 13.3-17.7 G/DL Hematocrit 43 40-54 % Mean Corpuscular Volume 88 80-99 FL Mean Corpuscular Hemoglobin 31 25-34 PG Mean Corpuscular Hemoglobin Concent 35 32-36 G/DL Red Cell Distribution Width 14.5 10.0-14.5 % Platelet Count 191 130-400 10^3/uL Mean Platelet Volume 11.4 H 7.4-10.4 FL Neutrophils (%) (Auto) 62 42-75 % Lymphocytes (%) (Auto) 27 12-44 % Monocytes (%) (Auto) 10 0-12 % Eosinophils (%) (Auto) 1 0-10 % Basophils (%) (Auto) 1 0-10 % Neutrophils # (Auto) 3.9 1.8-7.8 X 10^3 Lymphocytes # (Auto) 1.7 1.0-4.0 X 10^3 Monocytes # (Auto) 0.6 0.0-1.0 X 10^3 Eosinophils # (Auto) 0.0 0.0-0.3 10^3/uL Basophils # (Auto) 0.0 0.0-0.1 10^3/uL Prothrombin Time 13.4 12.2-14.7 SEC INR Comment 1.0 0.8-1.4 Activated Partial Thromboplast Time 30 24-35 SEC Sodium Level 144 135-145 MMOL/L Potassium Level 3.5 L 3.6-5.0 MMOL/L Chloride Level 112 H 98-107 MMOL/L Carbon Dioxide Level 21 21-32 MMOL/L Anion Gap 11 5-14 MMOL/L Blood Urea Nitrogen 16 7-18 MG/DL Creatinine 1.39 H 0.60-1.30 MG/DL Estimat Glomerular Filtration Rate 52 BUN/Creatinine Ratio 12 Glucose Level 132 H 70-105 MG/DL Calcium Level 9.4 8.5-10.1 MG/DL Magnesium Level 2.5 H 1.8-2.4 MG/DL Total Bilirubin 0.9 0.1-1.0 MG/DL Aspartate Amino Transf (AST/SGOT) 29 5-34 U/L Alanine Aminotransferase (ALT/SGPT) 43 0-55 U/L Alkaline Phosphatase 45 40-136 U/L Total Creatine Kinase 191 30-200 U/L Creatine Kinase MB 1.9 <6.6 NG/ML Troponin I < 0.30 <0.30 NG/ML B-Type Natriuretic Peptide 59.5 <100.0 PG/ML Total Protein 7.3 6.4-8.2 GM/DL Albumin 4.6 H 3.2-4.5 GM/DL Amylase Level 64 25-125 U/L Lipase 22 8-78 U/L My Orders Orders - CARROLL GALINDO DO Amylase (08/24/17 20:28) Cbc With Automated Diff (08/24/17 20:28) Comprehensive Metabolic Panel (08/24/17 20:28) Creatine Kinase (08/24/17 20:28) Creatine Kinase Mb (08/24/17 20:28) Lipase (08/24/17 20:28) Partial Thromboplastin Time (08/24/17 20:28) Protime With Inr (08/24/17 20:28) Troponin I (08/24/17 20:28) Chest 1 View, Ap/Pa Only (08/24/17 20:28) O2 (08/24/17 20:28) Ekg Tracing (08/24/17 20:28) BNP (08/24/17 20:28) Monitor-Rhythm Ecg Trace Only (08/24/17 20:28) Saline Lock/Iv-Start (08/24/17 20:28) Magnesium (08/24/17 20:28) Saline Lock/Iv-Start (08/24/17 21:15) Lactated Ringers (Lr 1000 Ml Iv Solution (08/24/17 21:15) Metoprolol Tartrate (Ir) Tab (Lopressor (08/24/17 21:45) Medications Given in ED Current Medications Medications Dose Ordered Sig/Dae Route Start Time Stop Time Status Last Admin Dose Admin Lactated Ringer's 1,000 ml @ 0 mls/hr Q0M ONCE IV 08/24/17 21:15 08/24/17 21:30 DC 08/24/17 21:35 0 MLS/HR Vital Signs/I&O 08/24/17 08/24/17 08/24/17 20:18 20:18 20:30 Temp 97.1 Pulse 88 Resp 16 B/P (MAP) 132/93 (106) Pulse Ox 97 97 O2 Delivery Nasal Cannula Nasal Cannula Nasal Cannula O2 Flow Rate 2.00 2.0 2.00 Progress Progress Note : Progress Note NO PAIN OR ANY OTHER SYMPTOMS DURING ER STAY Initial ECG Impression Date: August 24, 2017 Initial ECG Impression Time: 20:23 Initial ECG Rate: 92 Initial ECG Rhythm: Normal Sinus Initial ECG Impression: Normal Initial ECG Comparisson: No Previous ECG Available Diagnostic Imaging Comments CXR--NO ACUTE PROCESS, PER RADIOLOGIST REPORT @ 2114 Reviewed: Reviewed by Me Departure Communication (Admissions) 2124--SPOKE WITH DR. SEVILLA, HOSPITALIST, ACCEPTS PT FOR ADMIT. Impression Primary Impression: Chest pain Disposition: ADMITTED INPATIENT Condition: Improved Admissions Decision to Admit Reason: Admit from ER (General) Decision to Admit/Date: August 24, 2017 Time/Decision to Admit Time: 21:25 Departure-Patient Inst. Referrals: NO,LOCAL PHYSICIAN (PCP/Family) Primary Care Physician Scripts No Active Prescriptions or Reported Meds CARROLL GALINDO DO August 24, 2017 20:35
[2017-08-24 20:37] LABS: BASOPHILS % (AUTO) 1 % (0-10); EOSINOPHILS % (AUTO) 1 % (0-10); HEMATOCRIT 43 % (40-54); HEMOGLOBIN 15.2 G/DL (13.3-17.7); LYMPHOCYTES # (AUTO) 1.7 X 10^3 (1.0-4.0); LYMPHOCYTES % (AUTO) 27 % (12-44); MEAN CORPUSCULAR HEMOGLOBIN 31 PG (25-34); MEAN CORPUSCULAR HGB CONC 35 G/DL (32-36); MEAN CORPUSCULAR VOLUME 88 FL (80-99); MEAN PLATELET VOLUME 11.4 FL (7.4-10.4); MONOCYTES # (AUTO) 0.6 X 10^3 (0.0-1.0); MONOCYTES % (AUTO) 10 % (0-12); NEUTROPHILS # (AUTO) 3.9 X 10^3 (1.8-7.8); NEUTROPHILS % (AUTO) 62 % (42-75); PLATELET COUNT 191 10^3/uL (130-400); RED BLOOD COUNT 4.89 10^6/uL (4.35-5.85); RED CELL DISTRIBUTION WIDTH 14.5 % (10.0-14.5); WHITE BLOOD COUNT 6.4 10^3/uL (4.3-11.0)
[2017-08-24 20:54] LABS: PROTHROMBIN TIME PATIENT 13.4 SEC (12.2-14.7)
[2017-08-24 20:59] LABS: ALANINE AMINOTRANSFERASE 43 U/L (0-55); ALBUMIN 4.6 GM/DL (3.2-4.5); ALKALINE PHOSPHATASE 45 U/L (40-136); BILIRUBIN,TOTAL 0.9 MG/DL (0.1-1.0); BUN/CREATININE RATIO 12; CALCIUM 9.4 MG/DL (8.5-10.1); CARBON DIOXIDE 21 MMOL/L (21-32); CHLORIDE 112 MMOL/L (98-107); CREATINE KINASE 191 U/L (30-200); CREATININE SERUM 1.39 MG/DL (0.60-1.30); GFR ESTIMATED 52; GLUCOSE 132 MG/DL (70-105); MAGNESIUM 2.5 MG/DL (1.8-2.4); POTASSIUM 3.5 MMOL/L (3.6-5.0); SODIUM 144 MMOL/L (135-145); TOTAL PROTEIN 7.3 GM/DL (6.4-8.2)
[2017-08-24 21:00] LABS: AMYLASE 64 U/L (25-125); LIPASE 22 U/L (8-78)
[2017-08-24 21:06] LABS: CREATINE KINASE MB 1.9 NG/ML (<6.6)
--- NOTE | 2017-08-24 21:13 | Diagnostic Imaging Report ---
INDICATION: Chest pain Upright portable chest shows normal heart size and vascularity. The lungs are clear. There is no effusion or pneumothorax. There is no bony abnormality. IMPRESSION: Normal chest. There is no change from 09/25/2016. Dictated by: Dictated on workstation # [id number]
[2017-08-24] MEDS ORDERED: LACTATED RINGERS 1,000 ML IV ONE ×2 (21:15→21:23)
[2017-08-24] MEDS ORDERED: meTOprolol TARTRATE 50 MG (LOPRESSOR) TAB PO ONE (21:45)
--- OUTSIDE RECORDS SUMMARY | 2017-08-24 21:46 | XMS REPORT | Continuity of Care Document ---
Author Author [facility] Organization [facility] Address Unknown Phone Unavailable Allergies Active Description Code Type Severity Reaction Onset Reported/Identified Relationship to Patient Clinical Status Yes No Known Drug Allergies [id number] Drug Allergy Unknown N/A 09/25/2016 Medications There [...] VENOM OF SPIDER, ACCIDEN 03/18/2016 BIJU QUEVEDO CERAMIC MAKER DEMONSTRATOR Ot J40 BRONCHITIS, NOT SPECIFIED ACUTE OR CH 03/18/2016 BIJU QUEVEDO APRN Ot R05 COUGH 03/19/2016 BIJU QUEVEDO APRN Ot J40 BRONCHITIS, NOT SPECIFIED ACUTE OR CH 03/19/2016 BIJU QUEVEDO APRN Ot R05 COUGH 03/29/2016 ELV VALENTE MD, Ot M47.812 SPONDYLOSIS W/O MYELOPATHY [...] UNSP, NOT INTRACTABLE, WITHOUT 09/27/2016 BIJU QUEVEDO CERAMIC MAKER DEMONSTRATOR Ot J40 BRONCHITIS, NOT SPECIFIED ACUTE OR CH 09/27/2016 BIJU QUEVEDO APRN Ot R05 COUGH 09/27/2016 BIJU QUEVEDO CERAMIC MAKER DEMONSTRATOR Ot Z90.49 ACQUIRED ABSENCE OF OTHER SPECIFIED PART 04/07/2017 KENISHA, JOSÉ SUPERIOR COURT CLERK Ot G40.909 EPILEPSY, UNSP, NOT INTRACTABLE, WITHOUT 04/07/2017 KENISHA, JOSÉ SUPERIOR COURT CLERK Ot I10 ESSENTIAL (PRIMARY) HYPERTENSION 04/07/2017 KENISHA, JOSÉ SUPERIOR COURT CLERK Ot M54.16 RADICULOPATHY, LUMBAR REGION 04/07/2017 KENISHA, JOSÉ SUPERIOR COURT CLERK Ot M54.5 LOW BACK PAIN 04/07/2017 KENISHA, JOSÉ SUPERIOR COURT CLERK Ot S39.012A STRAIN OF MUSCLE, FASCIA AND TENDON OF L 04/07/2017 KENISHA, JOSÉ SUPERIOR COURT CLERK Ot X58.XXXA EXPOSURE TO OTHER SPECIFIED FACTORS, INI 04/07/2017 KENISHA, JOSÉ SUPERIOR COURT CLERK Ot Z87.19 PERSONAL HISTORY OF OTHER DISEASES OF TH 04/07/2017 KENISHA, JOSÉ SUPERIOR COURT CLERK Ot Z90.49 ACQUIRED ABSENCE OF OTHER SPECIFIED PART 04/11/2017 KENISHA, JOSÉ SUPERIOR COURT CLERK Ot G40.909 EPILEPSY, UNSP, NOT INTRACTABLE, WITHOUT 04/11/2017 KENISHA, JOSÉ SUPERIOR COURT CLERK Ot I10 ESSENTIAL (PRIMARY) HYPERTENSION 04/11/2017 KENISHA, JOSÉ SUPERIOR COURT CLERK Ot M54.16 RADICULOPATHY, LUMBAR REGION 04/11/2017 KENISHA, JOSÉ SUPERIOR COURT CLERK Ot M54.5 LOW BACK PAIN 04/11/2017 KENISHA, JOSÉ SUPERIOR COURT CLERK Ot S39.012A STRAIN OF MUSCLE, FASCIA AND TENDON OF L 04/11/2017 KENISHA, JOSÉ SUPERIOR COURT CLERK Ot X58.XXXA EXPOSURE TO OTHER SPECIFIED FACTORS, INI 04/11/2017 KENISHA, JOSÉ SUPERIOR COURT CLERK Ot Z87.19 PERSONAL HISTORY OF OTHER DISEASES OF 04/11/2017 KENISHA, JOSÉ SUPERIOR COURT CLERK Ot Z90.49 ACQUIRED ABSENCE OF OTHER SPECIFIED [...] Status Pt. Type Provider Facility Loc./Unit Complaint [id number] 04/07/2017 22:28:00 04/07/2017 23:09:00 DIS Emergency JOSÉ DE [facility] ER LOW BACK PAIN [id number] 09/25/2016 18:38:00 09/25/2016 19:26:00 DIS Emergency BIJU QUEVEDO APRN [facility] ER POSSIBLE PNEUMONIA [id number] 03/29/2016 15:55:00 03/29/2016 18:57:00 DIS Emergency LEV VALENTE MD [facility] ER NECK PAIN FROM INJURY [id number] 03/18/2016 11:54:00 03/18/2016 12:34:00 DIS Emergency BIJU QUEVEDO APRN [facility] ER COUGH,FEVER,PAIN [id number] 02/07/2016 10:44:00 02/07/2016 13:51:00 DIS Emergency FAISAL KUMAR [facility] ER L KNEE SPIDER BITE, SPREADING [id number] 02/06/2016 18:52:00 02/06/2016 20:17:00 DIS Emergency QUIRINO SHEIKH, YOLANDA Jcaobs [facility] ER POSS SPIDER BITE ON L KNEE [id number] 10/18/2012 11:57:00 10/18/2012 23:59:59 CLS Outpatient RICARDO SHEIKH, LAURENCE Nicholson (DDU) [facility] DDU
[2017-08-24] MEDS ORDERED: meTOprolol TARTRATE 50 MG (LOPRESSOR) TAB ONE (22:06)
[2017-08-24 22:32] VITALS: BP 164/98
[2017-08-24 22:51] VITALS: BP 141/87
[2017-08-24 23:05] VITALS: BP 164/97
[2017-08-24 23:20] VITALS: BP 164/94
[2017-08-24 23:35] VITALS: BP 138/86
[2017-08-24 23:50] VITALS: BP 132/86
[2017-08-25] VITALS (8 sets, daily range): BP systolic 114–164; BP diastolic 77–97
[2017-08-25] MEDS ORDERED: NITROGLYCERIN 0.4 MG SL TABS BTL 25'S SL PRN (00:30)
[2017-08-25] MEDS ORDERED: morphine INJ 4 MG/ML 1 ML (VIAL/SYRINGE) IV PRN (00:30)
[2017-08-25] MEDS ORDERED: ONDANSETRON 4 MG/2 ML (SDV) Z0FRAN IV PRN (00:30)
[2017-08-25 03:21] LABS: BASOPHILS % (AUTO) 1 % (0-10); EOSINOPHILS # (AUTO) 0.1 10^3/uL (0.0-0.3); EOSINOPHILS % (AUTO) 2 % (0-10); HEMATOCRIT 39 % (40-54); HEMOGLOBIN 13.7 G/DL (13.3-17.7); LYMPHOCYTES # (AUTO) 2.3 X 10^3 (1.0-4.0); LYMPHOCYTES % (AUTO) 42 % (12-44); MEAN CORPUSCULAR HEMOGLOBIN 31 PG (25-34); MEAN CORPUSCULAR HGB CONC 35 G/DL (32-36); MEAN CORPUSCULAR VOLUME 89 FL (80-99); MEAN PLATELET VOLUME 11.2 FL (7.4-10.4); MONOCYTES # (AUTO) 0.7 X 10^3 (0.0-1.0); MONOCYTES % (AUTO) 12 % (0-12); NEUTROPHILS # (AUTO) 2.3 X 10^3 (1.8-7.8); NEUTROPHILS % (AUTO) 44 % (42-75); PLATELET COUNT 163 10^3/uL (130-400); RED CELL DISTRIBUTION WIDTH 14.2 % (10.0-14.5); WHITE BLOOD COUNT 5.4 10^3/uL (4.3-11.0)
[2017-08-25 03:50] LABS: BILIRUBIN,URINE NEGATIVE (NEGATIVE); CLARITY,URINE CLEAR; COLOR,URINE YELLOW; GLUCOSE, URINE (UA) NEGATIVE (NEGATIVE); KETONES,URINE NEGATIVE (NEGATIVE); LEUKOCYTE ESTERASE ,URINE NEGATIVE (NEGATIVE); NITRITE,URINE NEGATIVE (NEGATIVE); PH,URINE 6.5 (5-9); PROTEIN,URINE NEGATIVE (NEGATIVE); UROBILINOGEN,URINE 1 MG/DL (NORMAL)
[2017-08-25 03:50] LABS: ALANINE AMINOTRANSFERASE 35 U/L (0-55); ALBUMIN 3.9 GM/DL (3.2-4.5); ALKALINE PHOSPHATASE 36 U/L (40-136); BILIRUBIN,TOTAL 0.7 MG/DL (0.1-1.0); BUN/CREATININE RATIO 14; CALCIUM 8.4 MG/DL (8.5-10.1); CARBON DIOXIDE 21 MMOL/L (21-32); CHLORIDE 114 MMOL/L (98-107); CHOLESTEROL 174 MG/DL (< 200); CREATININE SERUM 1.08 MG/DL (0.60-1.30); GFR ESTIMATED > 60; GLUCOSE 89 MG/DL (70-105); HDL CHOLESTEROL 36 MG/DL (40-60); POTASSIUM 3.9 MMOL/L (3.6-5.0); SODIUM 143 MMOL/L (135-145); TOTAL PROTEIN 5.7 GM/DL (6.4-8.2); TRIGLYCERIDES 107 MG/DL (<150); VLDL CHOLESTEROL 21 MG/DL (5-40)
[2017-08-25 03:56] LABS: BACTERIA,URINE NEGATIVE /HPF; SQUAMOUS EPITHELIAL CELL,UR RARE /HPF
[2017-08-25 03:57] LABS: CARDIAC PROFILE 2 < 0.30 NG/ML (<0.30); MYOGLOBIN SERUM 61.9 NG/ML (10.0-92.0)
--- NOTE | 2017-08-25 08:04 | Consultation-Cardiology ---
HPI-Cardiology Cardiology Consultation Date of Consultation 08/25/17 Date of Admission Time Seen by Provider: 08:00 Indication: Chest pain HPI 62 years old gentleman with no significant past medical history was in his usual state of health when he started having chest pain yesterday described as dull achiness on the left side of her chest was progressively worse to the point that he could not take a deep breath. EMS were called and he was given aspirin and nitroglycerin and he felt better since then he did not have any further episode of chest pain currently laying down in bed comfortably, denied any shortness of breath, palpitation, syncope or near syncopal episode. Denied any claudication, denied any similar episode in the past although he reported having history of pleurisy in the remote past Home Medications & Allergies Allergies: Coded Allergies: No Known Drug Allergies (Unverified , 09/25/16) Home Medication List Reviewed: Yes Does not take any medication XXN-Wajgui-Fhpjhd Hx Patient Social History Employed/Student: employed Alcohol Use: Past History Recreational Drug Use: No Smoking Status: Former Smoker 2nd Hand Smoke Exposure: No Recent Foreign Travel: No Recent Infectious Disease Expo: No Recent Hopitalizations: No Physical Abuse Screen: No Sexual Abuse: No Immunizations Up To Date Tetanus Booster (TDap): Less than 5yrs Past Medical History Described below Family Medical History Significant Family History: No Pertinent Family Hx Family History: FH: heart attack 19 FATHER (HEART ATTACK X2) G8 SISTER (HEART ATTACK X4) GRANDFATHER ( OF HEART ATTACK) Constitutional: no symptoms reported, see HPI EENTM: see HPI Respiratory: see HPI; No cough, No dyspnea on exertion, No hemoptysis, No orthopnea, No phlegm, No short of breath, No stridor, No wheezing, No other Cardiovascular: see HPI, chest pain; No edema, No Hx of Intervention, No palpitations, No syncope, No vascular heart diseas, No other Gastrointestinal: no symptoms reported, see HPI Genitourinary: see HPI Musculoskeletal: no symptoms reported, see HPI Skin: no symptoms reported, see HPI Psychiatric/Neurological: No Symptoms Reported, See HPI Reviewed Test Results Reviewed Test Results Lab Laboratory Tests Test 08/24/17 20:20 08/25/17 02:15 08/25/17 02:50 Range/Units White Blood Count 6.4 5.4 4.3-11.0 10^3/uL Red Blood Count 4.89 4.40 4.35-5.85 10^6/uL Hemoglobin 15.2 13.7 13.3-17.7 G/DL Hematocrit 43 39 L 40-54 % Mean Corpuscular Volume 88 89 80-99 FL Mean Corpuscular Hemoglobin 31 31 25-34 PG Mean Corpuscular Hemoglobin Concent 35 35 32-36 G/DL Red Cell Distribution Width 14.5 14.2 10.0-14.5 % Platelet Count 191 163 130-400 10^3/uL Mean Platelet Volume 11.4 H 11.2 H 7.4-10.4 FL Neutrophils (%) (Auto) 62 44 42-75 % Lymphocytes (%) (Auto) 27 42 12-44 % Monocytes (%) (Auto) 10 12 0-12 % Eosinophils (%) (Auto) 1 2 0-10 % Basophils (%) (Auto) 1 1 0-10 % Neutrophils # (Auto) 3.9 2.3 1.8-7.8 X 10^3 Lymphocytes # (Auto) 1.7 2.3 1.0-4.0 X 10^3 Monocytes # (Auto) 0.6 0.7 0.0-1.0 X 10^3 Eosinophils # (Auto) 0.0 0.1 0.0-0.3 10^3/uL Basophils # (Auto) 0.0 0.0 0.0-0.1 10^3/uL Prothrombin Time 13.4 12.2-14.7 SEC INR Comment 1.0 0.8-1.4 Activated Partial Thromboplast Time 30 24-35 SEC Sodium Level 144 143 135-145 MMOL/L Potassium Level 3.5 L 3.9 3.6-5.0 MMOL/L Chloride Level 112 H 114 H 98-107 MMOL/L Carbon Dioxide Level 21 21 21-32 MMOL/L Anion Gap 11 8 5-14 MMOL/L Blood Urea Nitrogen 16 15 7-18 MG/DL Creatinine 1.39 H 1.08 0.60-1.30 MG/DL Estimat Glomerular Filtration Rate 52 > 60 BUN/Creatinine Ratio 12 14 Glucose Level 132 H 89 70-105 MG/DL Calcium Level 9.4 8.4 L 8.5-10.1 MG/DL Magnesium Level 2.5 H 1.8-2.4 MG/DL Total Bilirubin 0.9 0.7 0.1-1.0 MG/DL Aspartate Amino Transf (AST/SGOT) 29 22 5-34 U/L Alanine Aminotransferase (ALT/SGPT) 43 35 0-55 U/L Alkaline Phosphatase 45 36 L 40-136 U/L Total Creatine Kinase 191 30-200 U/L Creatine Kinase MB 1.9 <6.6 NG/ML Troponin I < 0.30 < 0.30 <0.30 NG/ML B-Type Natriuretic Peptide 59.5 <100.0 PG/ML Total Protein 7.3 5.7 L 6.4-8.2 GM/DL Albumin 4.6 H 3.9 3.2-4.5 GM/DL Amylase Level 64 25-125 U/L Lipase 22 8-78 U/L Urine Color YELLOW Urine Clarity CLEAR Urine pH 6.5 5-9 Urine Specific [place] 1.015 L 1.016-1.022 Urine Protein NEGATIVE NEGATIVE Urine Glucose (UA) NEGATIVE NEGATIVE Urine Ketones NEGATIVE NEGATIVE Urine Nitrite NEGATIVE NEGATIVE Urine Bilirubin NEGATIVE NEGATIVE Urine Urobilinogen 1 NORMAL MG/DL Urine Leukocyte Esterase NEGATIVE NEGATIVE Urine RBC (Auto) NEGATIVE NEGATIVE Urine RBC NONE /HPF Urine WBC NONE /HPF Urine Squamous Epithelial Cells RARE /HPF Urine Crystals NONE /LPF Urine Bacteria NEGATIVE /HPF Urine Casts NONE /LPF Urine Mucus SMALL H /LPF Urine Culture Indicated NO Myoglobin 61.9 10.0-92.0 NG/ML Triglycerides Level 107 <150 MG/DL Cholesterol Level 174 < 200 MG/DL LDL Cholesterol Direct 127 1-129 MG/DL VLDL Cholesterol 21 5-40 MG/DL HDL Cholesterol 36 L 40-60 MG/DL Physical Exam Vital Signs Vital Signs - First Documented Capillary Refill : Less Than 3 Seconds General Appearance: No Apparent Distress, WD/WN Eyes: Bilateral Eye Normal Inspection, Bilateral Eye PERRL, Bilateral Eye EOMI HEENT: PERRL/EOMI, TMs Normal, Normal ENT Inspection, Pharynx Normal Neck: Full Range of Motion, Normal Inspection, Non Tender, Supple, Carotid Bruit Respiratory: Chest Non Tender, Lungs Clear, Normal Breath Sounds, No Accessory Muscle Use, No Respiratory Distress Cardiovascular: Regular Rate, Rhythm, No Edema, No Gallop, No JVD, No Murmur, Normal Peripheral Pulses Gastrointestinal: Normal Bowel Sounds, No Organomegaly, No Pulsatile Mass, Non Tender, Soft Back: Normal Inspection, No CVA Tenderness, No Vertebral Tenderness Extremity: Normal Capillary Refill, Normal Inspection, Normal Range of Motion, Non Tender, No Calf Tenderness, No Pedal Edema Neurologic/Psychiatric: Alert, Oriented x3, No Motor/Sensory Deficits, Normal Mood/Affect Skin: Normal Color, Warm/Dry Lymphatic: No Adenopathy A/P-Cardiology Admission Diagnosis Chest pain nonspecific etiology Hypertension Hyperlipidemia Family history of heart disease Assessment/Plan Chest pain nonspecific etiology, atypical in presentation, responded to sublingual nitroglycerin, currently feeling better, EKG and cardiac enzymes did not show any acute changes. I plan to proceed with exercise stress test. Hypertension, no previous history of hypertension. Blood pressure is mildly elevated. Continue to monitor blood pressure at this point. Hyperlipidemia, mildly elevated LDL level. Educated on diet and monitor Tobaccoism, has stopped smoking in the past. Educated on avoiding any tobacco product Strong family history of heart disease Clinical Quality Measures AMI/AHF: ASA po Prior to arrival: Yes (324) DVT/VTE Risk/Contraindication: Risk Factor Score Per Nursin RFS Level Per Nursing on Admit: 2=Moderate JUAN C GARCIA MD August 25, 2017 08:04
--- NOTE | 2017-08-25 08:49 | Discharge Inst-Simple/Standard ---
Discharge Inst-Standard Patient Instructions/Follow Up Plan of Care/Instructions/FU: Please follow up with a physician to establish care. Activity as Tolerated: Yes Discharge Diet: Low Sodium Diet, Low Fat/Low Cholesterol Return to The Hospital For: Chest pain, SOB, if you feel you are getting worse. Planned Outpatient Orders/Ref. Pneu Vac Indicated: Yes VLAD OCONNOR MD August 25, 2017 8:49 am
[2017-08-25] MEDS ORDERED: ASPIRIN E.C. 325 MG (ECOTRIN) TABLET PO SCH (09:00)
[2017-08-25] MEDS ORDERED: meTOprolol TARTRATE 50 MG (LOPRESSOR) TAB PO SCH (09:00)
--- NOTE | 2017-08-25 09:11 | Short Stay Summary-Hospitalist ---
History of Present Illness HPI/Chief Complaint Pt is a 62yoCM who presented to the ER with CC of chest pain. 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 He felt short of breath at the time. 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 He was given ASA and 2x of nitro in EMS and his symptoms resolved. He was admitted for ACS rule out. His only complaint today is that he was woken up multiple times throughout the night for vitals. He denies any chest pain and SOB now. He underwent stress echo this morning with Dr Galicia. Source: patient Exam Limitations: no limitations Date Seen 08/25/17 Time Seen by Provider: 08:54 Attending Physician Troy Kline MD PCP No,Local Physician Referring Physician Date of Admission August 24, 2017 at 21:40 Home Medications & Allergies Home Medications Reviewed patient Home Medication Reconciliation performed by pharmacy medication reconciliations military technician and/or nursing. Patients Allergies have been reviewed. Allergies Allergies Coded Allergies No Known Drug Allergies (Unverified09/25/16) Past Lrghnuh-Xhcjyg-Ykfdyd Hx Past Med/Social Hx: Reviewed Nursing Past Med/Soc Hx Patient Social History Marrital Status: single Employed/Student: employed Alcohol Use: Past History Recreational Drug Use: No Smoking Status: Former Smoker 2nd Hand Smoke Exposure: No Physical Abuse Screen: No Sexual Abuse: No Recent Foreign Travel: No Contact w/other who traveled: No Recent Hopitalizations: No Recent Infectious Disease Expo: No Immunizations Up To Date Tetanus Booster (TDap): Less than 5yrs Seasonal Allergies Seasonal Allergies: No Past Medical History Surgeries: Abdominal (hernia), Appendectomy Neurological: Seizure Disorder Reproductive: No Sexually Transmitted Disease: No Gastrointestinal: Abdominal Hernia, Gastroesophageal Reflux Musculoskeletal: Fractures History of Blood Disorders: No Family History FH: heart attack 19 FATHER (HEART ATTACK X2) G8 SISTER (HEART ATTACK X4) GRANDFATHER ( OF HEART ATTACK) Heart Disease, CAD Over 55 Years Old Review of Systems Constitutional: No chills, No fever EENTM: No blurred vision, No double vision, No nose congestion, No throat pain Respiratory: No cough, No dyspnea on exertion; short of breath Cardiovascular: chest pain; No edema, No palpitations Gastrointestinal: No abdominal pain, No constipation, No diarrhea, No nausea, No vomiting Genitourinary: No dysuria, No frequency Musculoskeletal: No joint pain, No muscle pain Skin: No lesions, No rash Psychiatric/Neurological: Denies Headache, Denies Numbness, Denies Tingling Physical Exam Physical Exam Vital Signs Vital Signs - First Documented Capillary Refill : Less Than 3 Seconds General Appearance: No Apparent Distress, WD/WN HEENT: PERRL/EOMI, Moist Mucous Membranes Neck: Non Tender, Supple; No JVD, No Thyromegaly Respiratory: Lungs Clear, No Respiratory Distress Cardiovascular: Regular Rate, Rhythm, No Murmur Gastrointestinal: Normal Bowel Sounds, Non Tender, Soft Extremity: Normal Capillary Refill, No Calf Tenderness Neurologic/Psychiatric: Alert, Oriented x3, Normal Mood/Affect Skin: Normal Color, Warm/Dry Results Results/Procedures Labs Laboratory Tests 08/24/17 20:20 08/25/17 02:50 Patient resulted labs reviewed. Imaging: Reviewed Imaging Films, Reviewed Imaging Report Short Stay Diagnosis Discharge Diagnosis-Short Stay Admission Diagnosis Chest Pain Final Discharge Diagnosis Chest pain Conclusion Plan See below Diagnosis/Problems Diagnosis/Problems (1) Chest pain Status: Acute Assessment & Plan: Troponin negative Does not seem cardiac in nature likely more MSK related Cardiology consulted, appreciate recs Underwent Stress testing with Dr Galicia Low risk stress Deemed safe for discharge [facility] to establish care Qualifiers: Qualified Codes: R07.9 - Chest pain, unspecified Clinical Quality Measures AMI/AHF: ASA po Prior to arrival: Yes (324) DVT/VTE Risk/Contraindication: Risk Factor Score Per Nursin RFS Level Per Nursing on Admit: 2=Moderate Copy Copies To 1: [facility]/VLAD SKELTON MD August 25, 2017 09:11
[2017-08-25] MEDS ORDERED: ASPI-586 PO (09:26)
== END 2017-08-25 09:26 | disposition home or self-care (01) ==
LOC: EDUNIT# 20:18 → ER 20:19 → UNDOADMOB 21:40 → 4TH 21:40 → UNDOADMOB 22:28 → UNDODISOB 08-25 12:35
PROVIDERS: ADMIT Internal Medicine; ATTEND Internal Medicine
DX: R07.9 Chest pain, unspecified (principal); Z87.891 Personal history of nicotine dependence; I10 Essential (primary) hypertension; E78.5 Hyperlipidemia, unspecified; Z82.49 Family history of ischemic heart disease and other diseases of the circulatory system
CPT/HCPCS: 36415; 71045; 80053; 80061; 81000; 82150; 82550; 82553; 83690; 83735; 83874; 83880; 84484; 85025; 85610; 85730; 93005; 93041; 93351; 96360

== ENCOUNTER 2017-09-17 16:12 | Emergency (ER) | payer SELFPAY ==
[~2017-09-17] VITALS: Ht 175.3 cm; Wt 80.7 kg
[~2017-09-17 16:12] MED LIST changes: +ASPI-586 PO
[2017-09-17 17:04] LABS: BASOPHILS % (AUTO) 1 % (0-10); EOSINOPHILS # (AUTO) 0.1 10^3/uL (0.0-0.3); EOSINOPHILS % (AUTO) 1 % (0-10); HEMATOCRIT 44 % (40-54); HEMOGLOBIN 15.5 G/DL (13.3-17.7); LYMPHOCYTES # (AUTO) 1.9 X 10^3 (1.0-4.0); LYMPHOCYTES % (AUTO) 28 % (12-44); MEAN CORPUSCULAR HEMOGLOBIN 31 PG (25-34); MEAN CORPUSCULAR HGB CONC 35 G/DL (32-36); MEAN CORPUSCULAR VOLUME 87 FL (80-99); MEAN PLATELET VOLUME 11.6 FL (7.4-10.4); MONOCYTES # (AUTO) 0.7 X 10^3 (0.0-1.0); MONOCYTES % (AUTO) 10 % (0-12); NEUTROPHILS % (AUTO) 60 % (42-75); PLATELET COUNT 204 10^3/uL (130-400); RED BLOOD COUNT 5.09 10^6/uL (4.35-5.85); RED CELL DISTRIBUTION WIDTH 14.3 % (10.0-14.5); WHITE BLOOD COUNT 6.6 10^3/uL (4.3-11.0)
[2017-09-17 17:13] LABS: BILIRUBIN,URINE NEGATIVE (NEGATIVE); CLARITY,URINE CLEAR; COLOR,URINE YELLOW; GLUCOSE, URINE (UA) NEGATIVE (NEGATIVE); KETONES,URINE NEGATIVE (NEGATIVE); LEUKOCYTE ESTERASE ,URINE NEGATIVE (NEGATIVE); NITRITE,URINE NEGATIVE (NEGATIVE); PH,URINE 6 (5-9); PROTEIN,URINE NEGATIVE (NEGATIVE); UROBILINOGEN,URINE NORMAL (NORMAL)
[2017-09-17 17:18] LABS: ALANINE AMINOTRANSFERASE 39 U/L (0-55); ALBUMIN 4.4 GM/DL (3.2-4.5); ALKALINE PHOSPHATASE 43 U/L (40-136); BILIRUBIN,TOTAL 0.5 MG/DL (0.1-1.0); BUN/CREATININE RATIO 18; CALCIUM 9.4 MG/DL (8.5-10.1); CARBON DIOXIDE 21 MMOL/L (21-32); CHLORIDE 107 MMOL/L (98-107); CREATININE SERUM 1.12 MG/DL (0.60-1.30); GFR ESTIMATED > 60; GLUCOSE 110 MG/DL (70-105); MAGNESIUM 2.7 MG/DL (1.8-2.4); POTASSIUM 3.9 MMOL/L (3.6-5.0); SODIUM 139 MMOL/L (135-145); TOTAL PROTEIN 6.1 GM/DL (6.4-8.2)
[2017-09-17 17:18] LABS: SQUAMOUS EPITHELIAL CELL,UR RARE /HPF
[2017-09-17] MEDS ORDERED: LEVE500T99 PO (18:04)
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
[2017-09-17 18:17] VITALS: BP 137/91
== END 2017-09-17 18:17 | disposition home or self-care (01) ==
LOC: EDUNIT# 16:12 → ER 16:14
DX: R25.9 Unspecified abnormal involuntary movements (principal); I25.2 Old myocardial infarction; I10 Essential (primary) hypertension; G40.909 Epilepsy, unspecified, not intractable, without status epilepticus; K21.9 Gastro-esophageal reflux disease without esophagitis; Z82.49 Family history of ischemic heart disease and other diseases of the circulatory system; Z79.82 Long term (current) use of aspirin; Z87.19 Personal history of other diseases of the digestive system; Z90.89 Acquired absence of other organs
CPT/HCPCS: 36415; 80053; 81000; 83735; 85025

== ENCOUNTER 2023-02-05 18:42 | Emergency (ER) | payer SELFPAY ==
[~2023-02-05] VITALS: Ht 172.7 cm; Wt 86.2 kg
[~2023-02-05 18:42] MED LIST changes: -BENZ-13 PO; +BENZ100C18 PO; +BROM118S61 PO; +CYCL10TA25 PO; -CYCL10TA9 PO; -D-ME118S33 PO; +LEVE500T99 PO; -MINO100C2 PO; +MINO100C5 PO; -SULF1TAB35 PO; +SULF1TAB38 PO; -TRAM50TA2 PO; +TRM50T PO
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
--- NOTE | 2023-02-05 19:38 | Diagnostic Imaging Report ---
HISTORY: Left forearm pain. TECHNIQUE: 2 views of the left forearm. COMPARISON: None. FINDINGS: No acute fracture is seen in the left forearm. Alignment is normal. Joint spaces appear preserved. There is soft tissue swelling in the anterior left forearm. IMPRESSION: Soft tissue swelling of the left forearm with no acute fracture seen. Dictated by: Dictated on workstation # [id number]
--- NOTE | 2023-02-05 19:39 | Diagnostic Imaging Report ---
HISTORY: Left wrist pain after injury. TECHNIQUE: 3 views of the left wrist. COMPARISON: None. FINDINGS: No acute fracture is seen in the left wrist. Alignment is normal. There is mild degenerative change of the basal joints of the thumb. No erosion is seen. There is mild soft tissue swelling about the left wrist. IMPRESSION: No acute osseous abnormality is seen in the left wrist. Dictated by: Dictated on workstation # [id number]
[2023-02-05 20:04] VITALS: BP 151/96
== END 2023-02-05 20:05 | disposition home or self-care (01) ==
LOC: EDUNIT# 18:42 → ER 18:45
DX: M25.532 Pain in left wrist (principal); W01.190A Fall on same level from slipping, tripping and stumbling with subsequent striking against furniture, initial encounter
CPT/HCPCS: 73090; 73110